=== PATIENT | male | born 1995 | race Caucasian/White ===

== ENCOUNTER 2024-10-23 01:02 | Emergency (ER) | payer BC, SELFPAY ==
[2024-10-23 01:06] VITALS: BP 144/86
--- NOTE | 2024-10-23 01:49 | ED.GENMED ---
History of Present Illness
General
Chief Complaint: Musculo-Skeletal Complaint
Source: patient
Time Seen by Provider: 10/23/24 01:42
History of Present Illness
History of Present Illness:
29-year-old male with no significant past medical history presents emergency department for evaluation of left thigh pain that started over the last couple of days, concern for possible DVT. Patient states that over the last week or so he just has
not felt his usual self, intermittent discomfort within the left axillary region that waxes and wanes with no exacerbating or alleviating factors and then noticed a tenderness within the left medial part of his thigh. Patient states it is little
bit tender to the touch as well as with range of motion. Has not attempted any medications for pain. Patient states he did attempt to go to the gym thinking that this might help but states while it did not make the symptoms any worse it did not
make the symptoms any. Patient was most concerned for possible DVT which is why he presented to the ER for further evaluation
Past History
Past History
ED Past Medical History: None
ED Past Surgical History: None
Social History
Tobacco: Non-smoker
Alcohol: Occasional
Drug: None
Personal: Single
Living: with family
Employment: Employed
Review of Systems
Review of Systems
All Other Systems: ROS reviewed and negative except as documented in HPI and ROS
Phy Exam
Physical Exam
Physical Exam:
GENERAL: Alert , in no apparent distress, somewhat overweight
Head: Normocephalic atraumatic
EYE: conjunctiva clear
NECK: Supple
ENT: o/p clr, mmm.
CARDIAC: Regular rate and rhythm
LUNGS: Clear breath sounds bilaterally, no acute respiratory distress, no wheezes/rales/rhonchi
NEUROLOGICAL: Alert and oriented
SKIN: Warm and dry, skin intact.
MUSCULOSKELETAL: well perfused. Patient allows for full active and passive range of motion of the left lower extremity. There is increased tenderness with resisted hip flexion which mimics the pain patient is reporting in the left thigh.
Extremity is otherwise warm and well-perfused, easily palpable distal pulses.
PSYCH: Normal and appropriate interaction.
Scores
Heart Failure Risk
Heart Failure Risk Score: Not Applicable
Heart Score for Chest Pain Patients
STEMI patient?: Not applicable
Withdrawal Assessment of Alcohol
Withdrawal Assessment Completed?: Not applicable
Course
Orders/Labs/Results
Orders:
Orders
10/23/24 01:49
Electrocardiogram (*1) Urgent
Reason for Study: Chest Pain
EKG- Treatment ONCE
Venous Doppler Lwr Ext Left [US Periph Venous LOWER Ext LT] Urgent
Comment:
Reason For Exam: pain left inner thigh
Vital Signs
Initial and Last Documented VS:
Initial Vital Signs
Temp Pulse Resp BP Pulse Ox
98.5 F 81 20 144/86 98
10/23/24 01:06 10/23/24 01:06 10/23/24 01:06 10/23/24 01:06 10/23/24 01:06
Last Documented Vital Signs
Temp Pulse Resp BP Pulse Ox
98.5 F 81 20 144/86 98
10/23/24 01:06 10/23/24 01:06 10/23/24 01:06 10/23/24 01:06 10/23/24 01:06
MDM/Problems Addressed
Differential Diagnosis Includes:
Muscle strain, tendinitis, patient without risk factors for DVT but will check ultrasound, PE considered if DVT study is positive, no concern for ACS
MDM/Problems Addressed:
29-year-old male presenting the ER for evaluation of nontraumatic left medial thigh pain x 4 to 5 days, patient most concerned for DVT. He does not have risk factor for this although patient states that he does not exercise or do much activity and
was concern for being fairly sedentary. Will check an ultrasound to rule out DVT. EKG ordered. Disposition pending.
*Radiology
Radiology exam reviewed: radiology read reviewed
*Pulse Oximetry
Patient hypoxic: no
*EKG
Heart Rate: 73
Rate: normal
Rhythm: sinus
[place]: normal axis
Ischemia: no ischemia
*Critical Care Note
Total Time (30-74mins, 75-104mins- exclusive of procedures): Not Applicable
Patient Management
Escalation/DeEscalation of care consider admission/obs:
Patient's ultrasound is negative for DVT or SVT EKG is without any evidence for ischemia. I do not have any concern for ACS nor PE as cause for patient's symptoms. Advised NSAIDs/Tylenol as needed for pain, follow-up with Ortho as needed if
symptoms persist.
ED Attending Note
-
Portions of this chart may have been created with voice recognition software.� Occasional wrong word or��sound alike� substitutions may have occurred due to the inherent limitations of voice recognition software.
Discharge Plan
Departure
Patient Disposition: Home (Routine Discharge)
Date of Disposition: 10/23/24
Time of Disposition: 02:22
Patient with high blood pressure during this ER visit?: No
Discharge Problem:
Left thigh pain
Instructions: Muscle Strain (DC)
Prescriptions:
No Action
Vitamin D3
5,000 mg PO DAILY
Referrals:
UNKNOWN - PT DOES,NOT KNOW [Family Provider] -
Interventions
Interventions:
*Risk Screen - Suicide Last Done: 10/23/24 01:06
*General Assessment Last Done: 10/23/24 01:06
*Neglect/Abuse Screening Last Done: 10/23/24 01:06
*ED- Fall Risk Assessment Last Done: 10/23/24 01:06
*ED COVID-19 Vaccine History Last Done: 10/23/24 01:06
*Nursing Disposition Last Done: 10/23/24 02:27
ED-Musculoskeletal Assessment Last Done: 10/23/24 02:27
Discharge Date and Time
Discharge Date/Time: 04/05/25 02:32
Print Language: SERBIAN
== END 2024-10-23 02:32 | disposition home or self-care (01) ==
LOC: EMR 01:02
PROVIDERS: EMERGENCY PHYSICIAN Student in an Organized Health Care Education/Training Program
DX: M79.652 Pain in left thigh (principal)
CPT/HCPCS: 99284; 93005; 93971

== ENCOUNTER → 2024-11-05 14:24 | Outpatient (REF) | payer BC, SELFPAY | LOC: HWRAD 14:24 | PROVIDERS: FAMILY PHYSICIAN Family Medicine | DX: L72.9 Follicular cyst of the skin and subcutaneous tissue, unspecified (principal) | CPT/HCPCS: 76882 ==